=== PATIENT | male | born 1980 | race African-American/Black ===

== ENCOUNTER 2021-01-01 10:38 | Emergency (ER) | payer OTHER, SELFPAY ==
[2021-01-01] MEDS ORDERED: Bacitracin 1 PK ONE (11:52)
[2021-01-01] MEDS ORDERED: Ketorolac Tromethamine 30 MG/ML VIAL ONE (11:52)
== END 2021-01-01 12:10 | disposition home or self-care (01) ==
LOC: CSHERS 10:38
DX: S60.132A Contusion of left middle finger with damage to nail, initial encounter (principal); I10 Essential (primary) hypertension; F17.210 Nicotine dependence, cigarettes, uncomplicated; W23.0XXA Caught, crushed, jammed, or pinched between moving objects, initial encounter
CPT/HCPCS: 11740; 96372; J1885

== ENCOUNTER 2021-08-10 22:08 | Emergency (ER) | payer OTHER, SELFPAY ==
[2021-08-10] MEDS ORDERED: Dexamethasone 10 MG/ML VIAL ONE (22:48)
== END 2021-08-10 22:59 | disposition home or self-care (01) ==
LOC: CSHERS 22:08
DX: J02.9 Acute pharyngitis, unspecified (principal)
CPT/HCPCS: 87081; 87430; 99283; J1100

== ENCOUNTER 2022-04-14 13:50 | Emergency (ER) | payer OTHER, SELFPAY ==
[2022-04-14] MEDS ORDERED: HYDROcodone/Acetaminophen 5/325 mg Tablet ONE (15:41)
== END 2022-04-14 17:12 | disposition home or self-care (01) ==
LOC: CSHERS 13:50
DX: S02.40CA Maxillary fracture, right side, initial encounter for closed fracture (principal); S02.31XA Fracture of orbital floor, right side, initial encounter for closed fracture; S02.40EA Zygomatic fracture, right side, initial encounter for closed fracture; I10 Essential (primary) hypertension; F17.210 Nicotine dependence, cigarettes, uncomplicated; W01.10XA Fall on same level from slipping, tripping and stumbling with subsequent striking against unspecified object, initial encounter
CPT/HCPCS: 70450; 70486

== ENCOUNTER 2022-04-19 18:15 | Emergency (ER) | payer SELFPAY ==
[2022-04-19] MEDS ORDERED: Ketorolac Tromethamine 30 MG/ML VIAL ONE (18:58)
== END 2022-04-19 19:09 | disposition home or self-care (01) ==
LOC: CSHERS 18:15
DX: S02.92XA Unspecified fracture of facial bones, initial encounter for closed fracture (principal); I10 Essential (primary) hypertension; F17.210 Nicotine dependence, cigarettes, uncomplicated; X58.XXXA Exposure to other specified factors, initial encounter
CPT/HCPCS: 96372; 99283; J1885